=== PATIENT | female | born 1980 | race Caucasian/White ===

== ENCOUNTER 2017-04-07 22:23 | Emergency (ER) | payer MEDICAID ==
[~2017-04-07] VITALS: Ht 180.3 cm; Wt 165.3 kg
[2017-04-07] MEDS ORDERED: ONDANSETRON PF 4 MG/2 ML VIAL. IV ONE (23:00)
[2017-04-07] MEDS ORDERED: IV NORMAL SALINE 1,000ML 1,000 ML IV SCH (23:00)
[2017-04-07] MEDS ORDERED: HYDROmorphone PF 1 MG/ML DISP.SYRIN IV/SQ PRN (23:00)
--- NOTE | 2017-04-07 23:00 | ED.ADGEN ---
Adult General HPI HPI Patient is a 36-year-old woman, with history of renal calculi, bipolar disorder , morbid obesity, who presents to the emergency department with a complaint of 4 hours of right-sided abdominal pain, associated with nausea and vomiting. Patient states that similar symptoms occurred previously when she experienced renal colic. She states that the pain has been persistent since it began, a sharp and cramping, and is currently a 9 out of 10. She states that she attempted to take a hot bath at home without relief. She states that she has been nauseous and experienced several episodes of vomiting during this time frame, and feels as though she becoming dehydrated. She states previously that she required hospitalization for a renal calculi 2 years ago where she became dehydrated. She has not seen a urologist since that time, as the imaging revealed no other stones present. She denies any fevers or chills, any injuries , any chest pain or shortness of breath, any focal weakness, numbness, tingling , headache, preceding GI or complaints. No hematuria, no pain with urination , states she has been voiding without issue. Patient is status post cholecystectomy and hysterectomy. History of alcohol abuse with resultant pancreatitis, but states that she has been sober for some time. He denies any drug use or cigarette use. Review of Systems Review of Systems Constitutional: Denies fever or chills [] Eyes: Denies change in visual acuity, redness, or eye pain [] HENT: Denies nasal congestion or sore throat [] Respiratory: Denies cough or shortness of breath [] Cardiovascular: No additional information not addressed in HPI [] GI: Right lower quadrant abdominal pain, associated with nausea and vomiting, no bloody stools or diarrhea. : Denies dysuria or hematuria [] Musculoskeletal: Denies back pain or joint pain [] Integument: Denies rash or skin lesions [] Neurologic: Denies headache, focal weakness or sensory changes [] Endocrine: Denies polyuria or polydipsia [] Current Medications Current Medications Current Medications Medications (Trade) Dose Ordered Sig/Sulema Start Time Stop Time Status Last Admin Dose Admin Cyclobenzaprine HCl (Flexeril) 10 mg 1X ONCE 04/08/17 00:30 5 00:31 UNV 04/08/17 00:30 10 MG Hydromorphone HCl (Dilaudid) 0.5 mg PRN Q15MIN PRN 04/07/17 23:00 04/08/17 22:59 04/07/17 23:30 0.5 MG Ondansetron HCl (Zofran) 4 mg 1X ONCE 04/07/17 23:00 04/07/17 23:01 DC 04/07/17 23:30 4 MG Sodium Chloride 1,000 ml @ 1,000 mls/hr Q1H 04/07/17 23:00 04/07/17 23:59 DC 04/07/17 23:30 1,000 MLS/HR Tamsulosin HCl (Flomax) 0.4 mg 1X ONCE 04/08/17 00:30 04/08/17 00:31 UNV 04/08/17 00:30 0.4 MG Allergies Allergies Allergies Coded Allergies Type Severity Reaction Last Updated Verified Penicillins Allergy Unknown 04/07/17 Yes cephalexin Allergy Unknown 04/07/17 Yes fentanyl Allergy Unknown 04/07/17 Yes ketorolac Allergy Unknown 04/07/17 Yes nalbuphine Allergy Unknown 04/07/17 Yes tramadol Allergy Unknown 04/07/17 Yes Physical Exam Physical Exam Constitutional: Well developed, well nourished, appears uncomfortable, non- toxic appearance. [] HENT: Normocephalic, atraumatic, bilateral external ears normal, oropharynx moist, no oral exudates, nose normal. [] Eyes: PERRLA, EOMI, conjunctiva normal, no discharge. [] Neck: Normal range of motion, no tenderness, supple, no stridor. [] Cardiovascular:Heart rate regular rhythm, no murmur , S1, S2, no rubs or gallops. Mild tachycardia. [] Lungs & Thorax: Bilateral breath sounds clear to auscultation, no wheezing, rhonchi, rales. No chest or crepitus or tenderness. [] Abdomen: Bowel sounds normal, obese, soft, tenderness to palpation in the right lower quadrant and suprapubic region, no masses, no pulsatile masses. [] Skin: Warm, dry, no erythema, no rash. [] Back: No tenderness, positive for right-sided CVA tenderness. Extremities: No tenderness, no cyanosis, no clubbing, ROM intact, no edema. [] Neurologic: Alert and oriented X 3, normal motor function, normal sensory function, no focal deficits noted. [] Psychologic: Affect normal, judgement normal, mood normal. [] Current Patient Data Vital Signs Vital Signs Date Time Temp Pulse Resp B/P (MAP) Pulse Ox O2 Delivery O2 Flow Rate FiO2 04/07/17 22:30 98.7 115 22 95 Room Air Lab Results Laboratory Tests Test 04/07/17 23:35 White Blood Count 8.8 x10^3/uL (4.0-11.0) Red Blood Count 4.74 x10^6/uL (3.50-5.40) Hemoglobin 14.1 g/dL (12.0-15.5) Hematocrit 40.9 % (36.0-47.0) Mean Corpuscular Volume 86 fL (79-100) Mean Corpuscular Hemoglobin 30 pg (25-35) Mean Corpuscular Hemoglobin Concent 35 g/dL (31-37) Red Cell Distribution Width 12.8 % (11.5-14.5) Platelet Count 151 x10^3/uL (140-400) Neutrophils (%) (Auto) 64 % (31-73) Lymphocytes (%) (Auto) 24 % (24-48) Monocytes (%) (Auto) 10 % (0-9) H Eosinophils (%) (Auto) 2 % (0-3) Basophils (%) (Auto) 1 % (0-3) Neutrophils # (Auto) 5.6 x10^3uL (1.8-7.7) Lymphocytes # (Auto) 2.1 x10^3/uL (1.0-4.8) Monocytes # (Auto) 0.9 x10^3/uL (0.0-1.1) Eosinophils # (Auto) 0.2 x10^3/uL (0.0-0.7) Basophils # (Auto) 0.0 x10^3/uL (0.0-0.2) Urine Collection Type Void Urine Color Yellow Urine Clarity Clear Urine pH 7.0 Urine Specific [place] 1.020 Urine Protein Neg (NEG-TRACE) Urine Glucose (UA) Neg mg/dL (NEG) Urine Ketones (Stick) Trace mg/dL (NEG) Urine Blood Neg (NEG) Urine Nitrite Neg (NEG) Urine Bilirubin Neg (NEG) Urine Urobilinogen Dipstick 0.2 mg/dL (0.2 mg/dL) Urine Leukocyte Esterase Neg (NEG) Urine RBC 0 /HPF (0-2) Urine WBC 0 /HPF (0-4) Urine Squamous Epithelial Cells Few /LPF Urine Calcium Phosphate Crystals Present /HPF Urine Bacteria Few /HPF (0-FEW) Urine Mucus Slight /LPF Sodium Level 144 mmol/L (136-145) Potassium Level 3.6 mmol/L (3.5-5.1) Chloride Level 104 mmol/L (98-107) Carbon Dioxide Level 28 mmol/L (21-32) Anion Gap 12 (6-14) Blood Urea Nitrogen 11 mg/dL (7-20) Creatinine 0.9 mg/dL (0.6-1.0) Estimated GFR (Cockcroft-Gault) 71.3 Glucose Level 101 mg/dL (70-99) H Calcium Level 9.4 mg/dL (8.5-10.1) Total Bilirubin 0.3 mg/dL (0.2-1.0) Direct Bilirubin 0.1 mg/dL (0.0-0.2) Aspartate Amino Transferase (AST) 38 U/L (15-37) H Alanine Aminotransferase (ALT) 100 U/L (14-59) H Alkaline Phosphatase 125 U/L (46-116) H Total Protein 7.5 g/dL (6.4-8.2) Albumin 3.6 g/dL (3.4-5.0) Lipase 140 U/L (73-393) EKG EKG ECG: Rhythm strip: Heart rate 112 bpm, sinus tachycardia, no ectopy. As interpreted by me. ECG: Rhythm strip: Heart rate 89 bpm, sinus rhythm, no ectopy. As interpreted by me. [] Radiology/Procedures Radiology/Procedures [][address] [address] IMAGING REPORT Signed PATIENT: CHAYO URIOSTEGUI ACCOUNT: [id number] : 1980 LOCATION: ER AGE: 36 SEX: F EXAM STATUS: REG ER ORD. PHYSICIAN: MADELINE TORRES DO REASON: R flank/RLQ pain, hx renal calculi PROCEDURE: CT ABDOMEN PELVIS WO CONTRAST INDICATION: Abdomen pain. COMPARISON: None TECHNIQUE: Axial CT images obtained through the abdomen and pelvis. Intravenous contrast was not utilized. One or more of the following individualized dose reduction techniques were utilized for this examination: 1. Automated exposure control; 2. Adjustment of the mA and/or kV according to patient size; 3. Use of iterative reconstruction technique. FINDINGS: Abdominal aorta not aneurysmal. No intrahepatic bile duct dilation. No peripancreatic edema. Spleen unremarkable. No hydronephrosis. No definite evidence of small bowel obstruction. Bladder largely decompressed. The appendix does not appear grossly inflamed. There are couple of nodules at the lung bases measuring up to about 5 millimeter. IMPRESSION: No evidence of hydronephrosis or radiopaque obstructive ureter stone. The appendix does not appear inflamed There are couple of nodules at lung bases measuring up to 5 millimeters. If the patient is low risk then these are probably benign. If the patient has risk factors for lung neoplasm a follow-up could be obtained in a year to ensure no growth. Electronically signed by: Matias Deng (April 07, 2017 23:18:05) Course & Med Decision Making Course & Med Decision Making Pertinent Labs and Imaging studies reviewed. (See chart for details) Patient received analgesia and antiemetics in the emergency department. No vomiting in the emergency department. Agreeable to receiving laboratory studies and imaging of the abdomen to assessable renal calculi or other abnormality. CT of the abdomen and pelvis not reveal any evidence of acute abnormality, appendix was unremarkable, as was:, No evidence of hydronephrosis or hydroureter , or radiopaque stone. Patient's urinalysis was negative for blood, bacteria, and WBCs, however some calcium oxalate crystals were noted. On reevaluation patient is feeling better after receiving medication in the ED. As stated, she has had no vomiting, and is resting complete. I did discuss findings with the patient, is likely that she has passed stone and has residual calcium in the urine, but there is no evidence of a concerning stone or other findings at this time. Recommended the patient follow the kidney stone dietary instructions, patient states that her diet is "poor", and use Flomax, and cyclobenzaprine as needed for residual pain. Patient also given contact information for Dr. Hinojosa of urology to schedule follow-up, along with clear and detailed medication precautions, instructions, and return instructions, with which she did voice understanding and agreement. Patient discharged home in stable condition with prescriptions and instructions as stated. Final Impression Final Impression [] Problems: Dragon Disclaimer Dragon Disclaimer This electronic medical record was generated, in whole or in part, using a voice recognition dictation system. Departure: Impression: Primary Impression: Renal colic on right side Disposition: 01 HOME, SELF-CARE Condition: IMPROVED Scripts Tamsulosin Hcl (FLOMAX) 0.4 Mg Cap.er.24h 0.4 MG PO DAILY, #2 CAP.SR Prov: MADELINE TORRES DO 04/08/17 Cyclobenzaprine Hcl (CYCLOBENZAPRINE HCL) 10 Mg Tablet 1 TAB PO TID Y for PAIN, #12 TAB Prov: MADELINE TORRES DO 04/08/17 MADELINE TORRES DO April 07, 2017 23:00
--- NOTE | 2017-04-07 23:20 | RAD ---
INDICATION: Abdomen pain. COMPARISON: None TECHNIQUE: Axial CT images obtained through the abdomen and pelvis. Intravenous contrast was not utilized. One or more of the following individualized dose reduction techniques were utilized for this examination: 1. Automated exposure control; 2. Adjustment of the mA and/or kV according to patient size; 3. Use of iterative reconstruction technique. FINDINGS: Abdominal aorta not aneurysmal. No intrahepatic bile duct dilation. No peripancreatic edema. Spleen unremarkable. No hydronephrosis. No definite evidence of small bowel obstruction. Bladder largely decompressed. The appendix does not appear grossly inflamed. There are couple of nodules at the lung bases measuring up to about 5 millimeter. IMPRESSION: No evidence of hydronephrosis or radiopaque obstructive ureter stone. The appendix does not appear inflamed There are couple of nodules at lung bases measuring up to 5 millimeters. If the patient is low risk then these are probably benign. If the patient has risk factors for lung neoplasm a follow-up could be obtained in a year to ensure no growth. Electronically signed by: Matias Deng (April 07, 2017 23:18:05)
[2017-04-07 23:57] LABS: BASO % 1 % (0-3); EOS # 0.2 x10^3/uL (0.0-0.7); EOS % 2 % (0-3); HEMATOCRIT 40.9 % (36.0-47.0); HEMOGLOBIN 14.1 g/dL (12.0-15.5); LYMPH # 2.1 x10^3/uL (1.0-4.8); LYMPH % 24 % (24-48); MEAN CORPUSCULAR HEMOGLOBIN 30 pg (25-35); MEAN CORPUSCULAR HGB CONC 35 g/dL (31-37); MEAN CORPUSCULAR VOLUME 86 fL (79-100); MONO # 0.9 x10^3/uL (0.0-1.1); MONO % 10 % (0-9); NEUT # 5.6 x10^3uL (1.8-7.7); NEUT % 64 % (31-73); PLATELET COUNT 151 x10^3/uL (140-400); RED BLOOD COUNT 4.74 x10^6/uL (3.50-5.40); RED CELL DISTRIBUTION WIDTH 12.8 % (11.5-14.5); WHITE BLOOD COUNT 8.8 x10^3/uL (4.0-11.0)
[2017-04-07 23:59] LABS: CALCIUM 9.4 mg/dL (8.5-10.1); CREATININE 0.9 mg/dL (0.6-1.0); GFR 71.3; POTASSIUM 3.6 mmol/L (3.5-5.1)
[2017-04-08 00:01] LABS: BACTERIA,URINE FEW /HPF (0-FEW); BILIRUBIN,URINE NEG (NEG); CLARITY,URINE CLEAR; COLOR,URINE YELLOW; GLUCOSE,URINE NEG (NEG); NITRITE,URINE NEG (NEG); RBC,URINE 0 /HPF (0-2); UROBILINOGEN,URINE 0.2 mg/dL (0.2 mg/dL); WBC,URINE 0 /HPF (0-4)
[2017-04-08 00:02] LABS: SQUAMOUS EPITHELIAL CELL,UR FEW /LPF
[2017-04-08 00:06] LABS: ALBUMIN 3.6 g/dL (3.4-5.0); DIRECT BILIRUBIN 0.1 mg/dL (0.0-0.2); TOTAL BILIRUBIN 0.3 mg/dL (0.2-1.0); TOTAL PROTEIN 7.5 g/dL (6.4-8.2)
[2017-04-08] MEDS ORDERED: CYCL-331 PO (00:21)
[2017-04-08] MEDS ORDERED: TAMS0.4C97 PO (00:21)
[2017-04-08] MEDS ORDERED: CYCLOBENZAPRINE 10 MG TABLET. ONE (00:29)
[2017-04-08] MEDS ORDERED: TAMSULOSIN 0.4 MG CAP.ER.24H. PO ONE ×2 (00:29→00:30)
[2017-04-08] MEDS ORDERED: CYCLOBENZAPRINE 10 MG TABLET. PO ONE (00:30)
[2017-04-08 00:43] VITALS: BP 137/78
== END 2017-04-08 00:35 | disposition home or self-care (01) ==
LOC: ER 22:23
DX: N23 Unspecified renal colic (principal); Z87.442 Personal history of urinary calculi; Z68.43 Body mass index [BMI] 50.0-59.9, adult; E66.01 Morbid (severe) obesity due to excess calories; Z88.0 Allergy status to penicillin; Z88.1 Allergy status to other antibiotic agents; Z88.6 Allergy status to analgesic agent; Z88.8 Allergy status to other drugs, medicaments and biological substances
CPT/HCPCS: 36415; 74176; 80048; 80076; 81001; 83690; 85027; 96361; 96374; 96375; 99285; J1170; J2405; J7030

== ENCOUNTER 2017-06-02 20:43 | Emergency (ER) | payer MEDICAID ==
[~2017-06-02] VITALS: Ht 180.3 cm; Wt 165.3 kg
[~2017-06-02 20:43] MED LIST: CYCL-331 PO; TAMS0.4C97 PO
[2017-06-02 21:38] VITALS: BP 144/78
[2017-06-02 22:51] LABS: BASO # 0.1 x10^3/uL (0.0-0.2); BASO % 1 % (0-3); EOS # 0.2 x10^3/uL (0.0-0.7); EOS % 3 % (0-3); HEMATOCRIT 39.5 % (36.0-47.0); HEMOGLOBIN 13.5 g/dL (12.0-15.5); LYMPH # 2.2 x10^3/uL (1.0-4.8); LYMPH % 31 % (24-48); MEAN CORPUSCULAR HEMOGLOBIN 30 pg (25-35); MEAN CORPUSCULAR HGB CONC 34 g/dL (31-37); MEAN CORPUSCULAR VOLUME 87 fL (79-100); MONO # 0.6 x10^3/uL (0.0-1.1); MONO % 9 % (0-9); NEUT # 4.1 x10^3uL (1.8-7.7); NEUT % 56 % (31-73); PLATELET COUNT 160 x10^3/uL (140-400); RED BLOOD COUNT 4.53 x10^6/uL (3.50-5.40); RED CELL DISTRIBUTION WIDTH 13.3 % (11.5-14.5); WHITE BLOOD COUNT 7.2 x10^3/uL (4.0-11.0)
[2017-06-02 22:55] LABS: BACTERIA,URINE FEW /HPF (0-FEW); BILIRUBIN,URINE NEG (NEG); CLARITY,URINE CLEAR; COLOR,URINE YELLOW; GLUCOSE,URINE NEG (NEG); NITRITE,URINE NEG (NEG); RBC,URINE 0 /HPF (0-2); SQUAMOUS EPITHELIAL CELL,UR OCC /LPF; UROBILINOGEN,URINE 0.2 mg/dL (0.2 mg/dL); WBC,URINE OCC /HPF (0-4)
[2017-06-02 23:05] LABS: ALBUMIN 3.6 g/dL (3.4-5.0); CALCIUM 8.4 mg/dL (8.5-10.1); CREATININE 0.8 mg/dL (0.6-1.0); DIRECT BILIRUBIN 0.1 mg/dL (0.0-0.2); GFR 81.2; POTASSIUM 3.5 mmol/L (3.5-5.1); TOTAL BILIRUBIN 0.4 mg/dL (0.2-1.0); TOTAL PROTEIN 6.8 g/dL (6.4-8.2)
--- NOTE | 2017-06-02 23:09 | RAD ---
CT ABDOMEN/PELVIS Indication: [id number] Right flank and anterior lower abdominal pain today. Hx: Kidney stones. Old images sent from 04/07/17 for comparison. Technique: Multiple contiguous axial images were obtained through the abdomen and pelvis. Coronal and sagittal reformations were created. PQRS STATEMENT One or more of the following in the visualized dose reduction techniques were utilized for this study: 1. Automatic exposure control, 2. Adjustment of the mA and/or kV according to patient size, 3. Use of iterative reconstruction technique ---- Comparison: April 07, 2017 Findings: The heart size is normal. A 4 mm nodule is noted in the left lower lobe. This is unchanged since 2009 and therefore likely benign. Evaluation of the abdominal viscera is limited in the absence of IV contrast. The liver is enlarged and demonstrates diffuse fatty infiltration. The gallbladder is surgically absent. The pancreas, and adrenal glands are within normal limits. The kidneys are unremarkable. The abdominal aorta is normal in caliber. There is no abdominopelvic ascites. The spleen is mildly enlarged measuring 13 cm in length. The bowel loops are normal in caliber. The appendix is normal. The urinary bladder is unremarkable. No destructive osseus lesions are identified. Impression: Hepatosplenomegaly with diffuse fatty infiltration of the liver. Negative for obstructive uropathy. There is a normal appendix. Electronically signed by: Miguel Angel Iqbal MD (06/02/2017 11:06 PM) [facility]
--- NOTE | 2017-06-02 23:12 | PHYS DOC ---
General Chief Complaint: ABDOMINAL PAIN Stated Complaint: LOWER ABDOMINAL PAIN Time Seen by MD: 22:17 Source: patient Exam Limitations: no limitations Problems: History of Present Illness Initial Comments Patient is a 37-year-old female who comes to the ED complaining of right flank pain. Patient states that she developed sudden onset right upper quadrant and right flank pain shortly before ED arrival. Symptoms are described as sharp and stabbing the moderate to severe in intensity no relieving or worsening factors noted. She denies fever chills sweats or myalgias she's had some nausea but no vomiting and denies any bowel or bladder changes. She states she has history of kidney stones and thinks she has a recurrence. Timing/Duration: 1 hour Severity: severe Modifying Factors: improves with other Associated Symptoms: nausea/vomiting, other Allergies: Coded Allergies: Penicillins (Verified Allergy, Unknown, 04/07/17) cephalexin (Verified Allergy, Unknown, 04/07/17) fentanyl (Verified Allergy, Unknown, 04/07/17) ketorolac (Verified Allergy, Unknown, 04/07/17) nalbuphine (Verified Allergy, Unknown, 04/07/17) tramadol (Verified Allergy, Unknown, 04/07/17) Past Medical History Medical History: other (kidney stones, bipolar, morbid obesity, pancreatitis) Surgical History: cholecystectomy (hysterectomy) Social History Smoker: non-smoker Alcohol: sober (history of alcoholism and alcoholic pancreatitis and claims to be sober) Drugs: none Review of Systems Constitutional: denies chills, denies diaphoresis, denies fever, denies malaise Respiratory: denies cough, denies shortness of breath Cardiovascular: denies chest pain, denies palpitations Gastrointestinal: see HPI Genitourinary: denies dysuria, denies frequency, denies hematuria Musculoskeletal: denies back pain, denies joint swelling, denies neck pain Psychiatric/Neurological: see HPI Hematologic/Lymphatic: denies easy bleeding, denies easy bruising Physical Exam General Appearance: no apparent distress, obese Ear, Nose, Throat: hearing grossly normal, normal ENT inspection, normal pharynx Neck: non-tender, supple Respiratory: normal breath sounds, no respiratory distress Cardiovascular: normal peripheral pulses, regular rate, rhythm Gastrointestinal: normal bowel sounds, non tender, soft, no organomegaly Back: no CVA tenderness, no vertebral tenderness Extremities: normal inspection (right-sided iliopsoas hypertonicity with tenderness noted) Neurologic/Psychiatric: 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 PATIENT: CHAYO URIOSTEGUI ACCOUNT: [id number] : 1980 LOCATION: ER AGE: 37 SEX: F EXAM STATUS: REG ER ORD. PHYSICIAN: TOMMIE CARBONE DO REASON: R flank pain h/o stones PROCEDURE: CT ABDOMEN PELVIS WO CONTRAST CT ABDOMEN/PELVIS Indication: [id number] Right flank and anterior lower abdominal pain today. Hx: Kidney stones. Old images sent from 04/07/17 for comparison. Technique: Multiple contiguous axial images were obtained through the abdomen and pelvis. Coronal and sagittal reformations were created. PQRS STATEMENT One or more of the following in the visualized dose reduction techniques were utilized for this study: 1. Automatic exposure control, 2. Adjustment of the mA and/or kV according to patient size, 3. Use of iterative reconstruction technique ---- Comparison: April 07, 2017 Findings: The heart size is normal. A 4 mm nodule is noted in the left lower lobe. This is unchanged since 2008 and therefore likely benign. Evaluation of the abdominal viscera is limited in the absence of IV contrast. The liver is enlarged and demonstrates diffuse fatty infiltration. The gallbladder is surgically absent. The pancreas, and adrenal glands are within normal limits. The kidneys are unremarkable. The abdominal aorta is normal in caliber. There is no abdominopelvic ascites. The spleen is mildly enlarged measuring 13 cm in length. The bowel loops are normal in caliber. The appendix is normal. The urinary bladder is unremarkable. No destructive osseus lesions are identified. Impression: Hepatosplenomegaly with diffuse fatty infiltration of the liver. Negative for obstructive uropathy. There is a normal appendix. Electronically signed by: Orquidea Cano MD (06/02/2017 11:06 PM) [facility] DICTATED AND SIGNED BY: ORQUIDEA CANO MD DATE: 06/02/17 [id number] CC: PCP,NO; TOMMIE CARBONE DO ~ Patient reassured that symptoms appear to be musculoskeletal in nature. I discussed the treatment plan she expressed agreement and understanding of same. Departure Time of Disposition: 23:17 Disposition: 01 HOME, SELF-CARE Diagnosis: right iliopsoas strain Condition: GOOD Patient Instructions: Muscle Strain, [id number] Additional Instructions: Activity as tolerated. Heating pad to affected area 15-20 minutes 4-6 times daily followed by gentle stretching. [id number] ibuprofen as needed. Prescription: Cyclobenzaprine take as directed. Follow-up with your doctor next week for recheck and further evaluation and treatment if necessary. Return to the ED with new or changing symptoms. TOMMIE CARBONE DO Jun 02, 2017 23:12
[2017-06-02] MEDS ORDERED: ORPHENADRINE CITRATE 60 MG/2 ML VIAL. IM ONE (23:30)
== END 2017-06-02 23:45 | disposition home or self-care (01) ==
LOC: ER 20:43
DX: S76.811A Strain of other specified muscles, fascia and tendons at thigh level, right thigh, initial encounter (principal); E66.01 Morbid (severe) obesity due to excess calories; Z87.442 Personal history of urinary calculi; Z88.0 Allergy status to penicillin; Z88.4 Allergy status to anesthetic agent; Z88.6 Allergy status to analgesic agent; Z88.1 Allergy status to other antibiotic agents; X58.XXXA Exposure to other specified factors, initial encounter; Y93.89 Activity, other specified; Y99.8 Other external cause status; Y92.89 Other specified places as the place of occurrence of the external cause
CPT/HCPCS: 36415; 74176; 80048; 80076; 81001; 83690; 85027; 87086; 96372; 99285; J2360